=== PATIENT | male | born 1980 | race Caucasian/White ===

== ENCOUNTER 2017-12-03 18:11 | Emergency (ER) | payer SELFPAY ==
[2017-12-04] MEDS ORDERED: PROM25TA10 PO (20:09)
== END 2017-12-03 21:17 | disposition left against medical advice (07) ==
LOC: NED 18:11
DX: R11.10 Vomiting, unspecified (principal)
CPT/HCPCS: 99281

== ENCOUNTER 2017-12-04 13:13 | Emergency (ER) | payer SELFPAY ==
[~2017-12-04] VITALS: Ht 175.3 cm; Wt 65.0 kg
[2017-12-04 13:26] VITALS: BP 139/82; PULSE 110; RESP 16; TEMP 98.5; O2SAT 100
[2017-12-04] MEDS ORDERED: SODIUM CHLOR 0.9% 1000 ML INJ 1,000 ML IV SCH (16:26)
[2017-12-04] MEDS ORDERED: LIDOCAINE VISCOUS 2% SOLN 15 ML UDC PO ONE (16:30)
[2017-12-04] MEDS ORDERED: ALUMINUM/MAGNESIUM/SIMETH 30 ML CUP PO ONE (16:30)
[2017-12-04] MEDS ORDERED: PANTOPRAZOLE SODIUM 40 MG VIAL IVP ONE (16:30)
[2017-12-04] MEDS ORDERED: ONDANSETRON HCL 4 MG/2 ML VIAL IVP ONE (16:30)
--- NOTE | 2017-12-04 16:35 | PD ---
HPI Chief Complaint: Abdominal Pain Time Seen by Provider: 16:13 Travel History International Travel<30 days: No Contact w/Intl Traveler<30days: No Traveled to known affect area: No History of Present Illness HPI 37-year-old male presents for evaluation of nausea, vomiting. Symptoms started 5 days ago. He reports multiple episodes of nonbloody emesis. He reports an acidic taste in his mouth. He reports that he has had epigastric burning discomfort associated with this. He reports that over the past 2 days he has had occasional loose watery stools. Denies fevers, chills, flank pain, dysuria , testicular scrotal pain. He denies any dietary changes. He reports that yogurt seem to help alleviate his pain when he ate some at one point. Denies alcohol use. Denies any history of abdominal surgery. He has no other complaints at this time. [facility] Social History Alcohol Use: No Tobacco Use: Yes Allergies-Medications (Allergen,Severity, Reaction): Coded Allergies: No Known Allergies (Unverified , 12/04/17) Reported Meds & Prescriptions Reported Meds & Active Scripts Active Phenergan (Promethazine HCl) 25 Mg Tablet 25 Mg PO Q6H PRN Review of Systems Except as stated in HPI: all other systems reviewed are Neg Physical Exam Narrative GENERAL: Well-developed well-nourished male in no acute distress SKIN: Warm and dry. HEAD: Atraumatic. Normocephalic. EYES: Pupils equal and round. No scleral icterus. No injection or drainage. ENT: No nasal bleeding or discharge. Mucous membranes pink and moist. NECK: Trachea midline. No JVD. CARDIOVASCULAR: Regular rate and rhythm. No murmur appreciated. RESPIRATORY: No accessory muscle use. Clear to auscultation. Breath sounds equal bilaterally. GASTROINTESTINAL: Abdomen soft, non-tender, nondistended. Hepatic and splenic margins not palpable. On repeat examination he has mild right upper quadrant tenderness. MUSCULOSKELETAL: No obvious deformities. No clubbing. No cyanosis. No edema. NEUROLOGICAL: Awake and alert. No obvious cranial nerve deficits. Motor grossly within normal limits. Normal speech. PSYCHIATRIC: Appropriate mood and affect; insight and judgment normal. Data Data Last Documented VS Vital Signs Date Time Temp Pulse Resp B/P (MAP) Pulse Ox O2 Delivery O2 Flow Rate FiO2 12/04/17 19:21 20 12/04/17 18:10 98 143/77 (99) 98 Room Air 12/04/17 13:26 98.5 Orders Orders Complete Blood Count With Diff (12/04/17 13:28) Comprehensive Metabolic Panel (12/04/17 13:28) Urinalysis - C+S If Indicated (12/04/17 13:28) Lipase (12/04/17 13:28) Iv Access Insert/Monitor (12/04/17 16:26) Ondansetron Inj (Zofran Inj) (12/04/17 16:30) Pantoprazole Inj (Protonix Inj) (12/04/17 16:30) Sodium Chlor 0.9% 1000 Ml Inj (Ns 1000 M (12/04/17 16:26) Al-Mag Hy-Si 40-40-4 Mg/Ml Liq (Mag-Al P (12/04/17 16:30) Lidocaine 2% Viscous (Xylocaine 2% Visco (12/04/17 16:30) Morphine Inj (Morphine Inj) (12/04/17 18:15) Metoclopramide Inj (Reglan Inj) (12/04/17 18:15) Us Abdomen Gallbladder (12/04/17 ) Ed Discharge Order (12/04/17 20:15) Labs Laboratory Tests Test 12/04/17 16:36 White Blood Count 8.3 TH/MM3 Red Blood Count 4.58 MIL/MM3 Hemoglobin 13.5 GM/DL Hematocrit 39.5 % Mean Corpuscular Volume 86.1 FL Mean Corpuscular Hemoglobin 29.6 PG Mean Corpuscular Hemoglobin Concent 34.3 % Red Cell Distribution Width 16.8 % Platelet Count 246 TH/MM3 Mean Platelet Volume 8.2 FL Neutrophils (%) (Auto) 45.5 % Lymphocytes (%) (Auto) 43.5 % Monocytes (%) (Auto) 9.1 % Eosinophils (%) (Auto) 1.5 % Basophils (%) (Auto) 0.4 % Neutrophils # (Auto) 3.8 TH/MM3 Lymphocytes # (Auto) 3.6 TH/MM3 Monocytes # (Auto) 0.8 TH/MM3 Eosinophils # (Auto) 0.1 TH/MM3 Basophils # (Auto) 0.0 TH/MM3 CBC Comment DIFF FINAL Differential Comment Urine Color YELLOW Urine Turbidity HAZY Urine pH 6.0 Urine Specific [place] 1.035 Urine Protein 30 mg/dL Urine Glucose (UA) NEG mg/dL Urine Ketones TRACE mg/dL Urine Occult Blood NEG Urine Nitrite NEG Urine Bilirubin NEG Urine Urobilinogen 2.0 MG/DL Urine Leukocyte Esterase NEG Urine WBC 1 /hpf Urine Squamous Epithelial Cells <1 /hpf Urine Bacteria OCC /hpf Urine Mucus MANY /lpf Microscopic Urinalysis Comment CULT NOT INDICATED Blood Urea Nitrogen 13 MG/DL Creatinine 1.24 MG/DL Random Glucose 92 MG/DL Total Protein 7.3 GM/DL Albumin 3.5 GM/DL Calcium Level 8.6 MG/DL Alkaline Phosphatase 79 U/L Aspartate Amino Transf (AST/SGOT) 47 U/L Alanine Aminotransferase (ALT/SGPT) 51 U/L Total Bilirubin 2.1 MG/DL Sodium Level 137 MEQ/L Potassium Level 4.1 MEQ/L Chloride Level 103 MEQ/L Carbon Dioxide Level 26.6 MEQ/L Anion Gap 7 MEQ/L Estimat Glomerular Filtration Rate 66 ML/MIN Lipase 125 U/L MDM Medical Decision Making Medical Screen Exam Complete: Yes Emergency Medical Condition: Yes Medical Record Reviewed: Yes Differential Diagnosis Gastritis, gastroenteritis, peptic ulcer disease, duodenal ulcer, pancreatitis, biliary colic, cholecystitis Narrative Course 37-year-old male with epigastric abdominal pain, nausea and vomiting for 5 days. He appears uncomfortable on initial examination. On initial examination he has no reproducible tenderness to palpation to his abdomen. Lab work was obtained and he was given GI cocktail, Protonix, Zofran and IV fluids. Upon reexamination he reports that his pain is actually worse and he had additional episodes of vomiting. On repeat examination he has mild right upper quadrant tenderness to palpation. Therefore right upper quadrant ultrasound has been ordered. His lab work has been reviewed. Bilirubin is 2.1, AST 47. Otherwise his lab work is unremarkable. He will be given Reglan, morphine. Right upper quadrant ultrasound is normal. The patient was monitored for some time after the ultrasound and he reports significant improvement in his symptoms. He was able to drink a bottle of Gatorade. At this point in time the plan is to discharge him with a short course of antiemetics. Discussed signs and symptoms I would warrant returning to the emergency room. He stable for discharge. Diagnosis Primary Impression: Nausea and vomiting Additional Impression: Epigastric pain Additional Instructions: Liquid diet for the next day, advance to soft diet in 2 days, slowly advance diet after that. Phenergan for nausea. Follow-up close with primary care physician and return for any acutely new or worsening symptoms such as intractable pain, intractable nausea and vomiting. Med/Other Pt SpecificInfo: Prescription(s) given Scripts Promethazine (Phenergan) 25 Mg Tablet 25 MG PO Q6H Y for NAUSEA OR VOMITING, #20 TAB 0 Refills Prov: Yair Macias MD 12/04/17 Disposition: 01 DISCHARGE HOME Condition: Stable Hubert Estrada Dec 04, 2017 16:35
[2017-12-04 17:05] LABS: AUTOMATED NEUTROPHIL # 3.8 TH/MM3 (1.8-7.7); BASOPHIL % 0.4 % (0.0-2.0); EOSINOPHIL # 0.1 TH/MM3 (0-0.4); EOSINOPHIL % 1.5 % (0.0-4.0); HEMATOCRIT 39.5 % (39.0-51.0); HEMOGLOBIN 13.5 GM/DL (13.0-17.0); LYMPH % 43.5 % (9.0-44.0); LYMPHOCYTE # 3.6 TH/MM3 (1.0-4.8); MEAN CELL VOLUME 86.1 FL (80.0-100.0); MEAN CORPUSCULAR HEMOGLOBIN 29.6 PG (27.0-34.0); MEAN CORPUSCULAR HGB CONC 34.3 % (32.0-36.0); MEAN PLATELET VOLUME 8.2 FL (7.0-11.0); MONO % 9.1 % (0.0-8.0); MONOCYTE # 0.8 TH/MM3 (0-0.9); NEUT % 45.5 % (16.0-70.0); PLATELET COUNT 246 TH/MM3 (150-450); RED BLOOD COUNT 4.58 MIL/MM3 (4.50-5.90); RED CELL DISTRIBUTION WIDTH 16.8 % (11.6-17.2); WHITE BLOOD COUNT 8.3 TH/MM3 (4.0-11.0)
[2017-12-04 17:34] LABS: BACTERIA, URINE OCC /hpf; BLOOD, URINE NEG (NEG); GLUCOSE,URINE NEG (NEG); KETONE, URINE TRACE mg/dL (NEG); MUCUS URINE MANY /lpf (OCC); NITRITE,URINE NEG (NEG); SQUAMOUS EPITHELIAL CELL URINE <1 /hpf (0-5); URINE COLOR YELLOW (YELLW/STRAW); URINE LEUKOCYTE ESTERASE NEG (NEG)
[2017-12-04 17:39] LABS: BILIRUBIN, URINE NEG (NEG)
[2017-12-04 18:10] VITALS: BP 143/77; PULSE 98; RESP 18; O2SAT 98
[2017-12-04 18:10] LABS: ALBUMIN 3.5 GM/DL (3.4-5.0); ALKALINE PHOSPHATASE 79 U/L (45-117); ALT (GPT) 51 U/L (12-78); AST (GOT) 47 U/L (15-37); BICARBONATE 26.6 MEQ/L (21.0-32.0); BLOOD UREA NITROGEN 13 MG/DL (7-18); CALCIUM 8.6 MG/DL (8.5-10.1); CHLORIDE 103 MEQ/L (98-107); CREATININE 1.24 MG/DL (0.60-1.30); GLOMERULAR FILTRATION RATE 66 ML/MIN (>89); GLUCOSE,RANDOM 92 MG/DL (74-106); SODIUM (NA) 137 MEQ/L (136-145); TOTAL BILIRUBIN ADULT 2.1 MG/DL (0.2-1.0); TOTAL PROTEIN 7.3 GM/DL (6.4-8.2)
[2017-12-04] MEDS ORDERED: METOCLOPRAMIDE HCL 10 MG/2 ML VIAL IV PUSH ONE (18:15)
[2017-12-04] MEDS ORDERED: MORPHINE SULFATE 4 MG/ML INJ IV PUSH ONE (18:15)
--- NOTE | 2017-12-04 19:16 | RADRPT ---
EXAM DATE/TIME: 12/04/2017 18:29 [place] COMPARISON: No previous studies available for comparison. INDICATIONS : Right upper quadrant pain. MEDICAL HISTORY : Nausea and vomiting. SURGICAL HISTORY : None. ENCOUNTER: Initial ACUITY: 4-6 days PAIN SCORE: 4/10 LOCATION: Right upper quadrant MEASUREMENTS: LIVER: 17.4 cm length COMMON DUCT: 5 mm RIGHT KIDNEY: 11.2 x 5.4 x 4.0 cm FINDINGS: LIVER: Normal echotexture without focal lesion or ductal dilatation. COMMON DUCT: No intraluminal mass or stone visualized. GALLBLADDER: Contains no stones, demonstrates no wall thickening or pericholecystic fluid. PANCREAS: The visualized portions are within normal limits. RIGHT KIDNEY: No evidence of hydronephrosis, stone, or mass. CONCLUSION: Normal examination for a patient of this age. Eric Ngo MD on December 04, 2017 at 19:13 Board Certified Radiologist. This report was verified electronically.
[2017-12-04 19:21] VITALS: RESP 20
[2017-12-04] MEDS ORDERED: PROM25TA10 PO (20:09)
== END 2017-12-04 21:10 | disposition home or self-care (01) ==
LOC: NEPD 13:13
DX: R11.2 Nausea with vomiting, unspecified (principal); R10.13 Epigastric pain; Z72.0 Tobacco use
CPT/HCPCS: 76705; 80053; 81001; 83690; 85025; 96361; 96374; 96375; 99284; C9113; J2270; J2405; J2765; J7030